=== PATIENT | male | born 1980 | race Hispanic/Latino ===

== ENCOUNTER → 2023-12-15 13:59 | Outpatient (REF) | payer OTHER, SELFPAY | LOC: CLINIC 13:59 | PROVIDERS: ATTENDING PHYSICIAN Orthopaedic Surgery | DX: M65.312 Trigger thumb, left thumb (principal) | CPT/HCPCS: 73130 ==

== ENCOUNTER → 2024-01-21 09:25 | Outpatient (REF) | payer OTHER, SELFPAY ==
[2024-01-21 12:46] LABS: Vitamin D, 25-OH*** 22.4 ng/mL (30-80)
== END ==
LOC: CLINIC 09:25
PROVIDERS: ATTENDING PHYSICIAN Nurse Practitioner Adult Health
DX: E55.9 Vitamin D deficiency, unspecified (principal)
CPT/HCPCS: 36415; 82306

== ENCOUNTER 2024-01-26 07:54 | Day surgery (SDC) | payer OTHER, SELFPAY ==
[2024-01-26 14:53] VITALS: BMI 28.3
[2024-01-26 14:54] VITALS: BMI 28.3
[2024-01-26 14:55] VITALS: BP 109/58
[2024-01-26 16:43] VITALS: BP 109/64
[2024-01-26 16:45] VITALS: BP 113/60
[2024-01-26 17:00] VITALS: BP 125/73
[2024-01-26 17:15] VITALS: BP 130/71
== END 2024-01-26 17:38 | disposition home or self-care (01) ==
LOC: SDS 07:54
PROVIDERS: ATTENDING PHYSICIAN Orthopaedic Surgery Hand Surgery
DX: M65.312 Trigger thumb, left thumb (principal)
CPT/HCPCS: 26055

== ENCOUNTER → 2024-07-21 09:13 | Outpatient (REF) | payer OTHER, SELFPAY ==
[2024-07-21 10:00] LABS: Hematocrit 42.9 % (39.0-52.0); Hemoglobin 14.9 g/dL (13.0-18.0); Mean Corp Hgb Conc. 34.7 g/dL (33.0-37.0); Mean Corpuscular Hgb 30.8 pg (27.0-31.0); Mean Corpuscular Volume 88.8 fL (80.0-94.0); Mean Platelet Volume 10.1 fL (7.4-10.4); Platelet Count 226 10^3/uL (130-400); Red Blood Cell Count 4.83 10^6/uL (4.70-6.10); White Blood Cell Count 6.3 10^3/uL (4.8-10.8)
[2024-07-21 10:59] LABS: ALT (SGPT) 43 U/L (0-50); AST (SGOT) 39 U/L (17-59); Albumin 4.7 g/dl (3.5-5.0); Alkaline Phosphatase 91 U/L (38-126); Blood Urea Nitrogen 14 mg/dl (9-20); Calcium 9.6 mg/dl (8.4-10.2); Carbon Dioxide 27 mmol/L (22-30); Chloride 104 mmol/L (98-107); Glucose 95 mg/dl (70-99); HDL Cholesterol 79 mg/dl; LDL Cholesterol, Calculated 106 mg/dl; Potassium 4.4 mmol/L (3.5-5.1); Sodium 141 mmol/L (135-145); Total Bilirubin 1.2 mg/dl (0.2-1.3); Total Cholesterol 213 mg/dl (50-199); Total Protein 7.3 g/dl (6.3-8.2); Triglyceride 144 mg/dl (10-149); Very Low Density Lipoprotein 28 mg/dl (0-30); eGFR > 60.00
[2024-07-21 11:07] LABS: Vitamin D, 25-OH*** 41.6 ng/mL (30-80)
== END ==
LOC: CLINIC 09:13
PROVIDERS: ATTENDING PHYSICIAN Nurse Practitioner Adult Health
DX: Z00.00 Encounter for general adult medical examination without abnormal findings (principal); E55.9 Vitamin D deficiency, unspecified
CPT/HCPCS: 36415; 80053; 80061; 82306; 85027